=== PATIENT | female | born 1980 | race Two or more races ===

== ENCOUNTER 2018-04-02 00:13 | Inpatient (IN) ==
[2018-04-02] MEDS ORDERED: FAMOTIDINE 20 MG/2 ML VIAL IV ONE ×2 (00:34→07:30)
[2018-04-02] MEDS ORDERED: ceFAZolin 2,000 MG in PREMIX 1 EACH IV ONE ×2 (00:34→07:30)
[2018-04-02] MEDS ORDERED: CITRIC ACID/SODIUM CITRATE 30 ML UDCUP PO ONE ×2 (00:34→07:30)
[2018-04-02] MEDS ORDERED: hydrOXYzine HCL 25 MG/1 ML VIAL IM PRN (00:38)
[2018-04-02] MEDS ORDERED: PROMETHAZINE 25 MG/1 ML VIAL IM ONE (00:38)
[2018-04-02] MEDS ORDERED: diphenhydrAMINE 50 MG/1 ML VIAL IV PRN ×2 (00:38)
[2018-04-02 01:27] LABS: Basophils # 0.1 10*3/uL (0.0-0.2); Basophils % 0.4 % (0.0-0.8); Eosinophils # 0.2 10*3/uL (0.0-0.87); Eosinophils % 1.2 % (0.00-10.9); Hematocrit 38.1 VOL% (35.7-47.0); Immature Granulocytes % 0.4 %; Immature Granulocytes Absolute 0.05 #; Lymphocytes # 2.8 10*3/uL (1.4-4.0); Lymphocytes % 21.9 % (21.3-54.2); Mean Corpuscular HGB Conc 34.1 GM/DL (32-36); Mean Corpuscular Hemoglobin 30 PG (27-34); Mean Corpuscular Volume 87.4 FL (87-102); Mean Platelet Volume 11.4 FL (9.6-12.0); Monocytes # 1.1 10*3/uL (0.11-0.8); Monocytes % 8.3 % (1.7-12.7); Neutrophils # 8.7 10*3/uL (1.4-7.4); Neutrophils % 67.8 % (38.7-73.9); Platelet Count 248 T/CUMM (130-400); Red Blood Count 4.36 MC/CUMM (3.8-5.5); Red Cell Distribution Width 13.1 % (9.3-17.3); White Blood Count 12.8 T/CUMM (4-12)
[2018-04-02] MEDS: LACTATED RINGERS 1,000 ML IV SCH ×4 (01:32→23:23)
[2018-04-02] MEDS ORDERED: ONDANSETRON 4 MG/2 ML VIAL IV PRN ×2 (01:38→09:54)
[2018-04-02] MEDS ORDERED: OXYTOCIN/LR 30 UNIT/1,000 ML BAG IV PRN (01:40)
[2018-04-02] MEDS ORDERED: ONDANSETRON 4 MG/2 ML VIAL ONE (01:44)
[2018-04-02] MEDS ORDERED: MEPERIDINE 50 MG/1 ML VIAL ONE (01:44)
[2018-04-02] MEDS: MEPERIDINE 50 MG/1 ML VIAL IV PRN ×2 (01:45→06:11)
[2018-04-02] MEDS ORDERED: OXYTOCIN 10 UNIT/ML VIAL IM ONE (07:45)
[2018-04-02] MEDS ORDERED: PHENYLEPHRINE 1 MG/10 ML SYRINGE IV ONE (07:51)
[2018-04-02] MEDS ORDERED: BUPIVACAINE SPINAL 0.75% 2 ML AMP SPINAL ONE (07:52)
[2018-04-02 08:18] LABS: Apearance,Urine Slightly Hazy (Clear); Bacteria,Urine Occasional /HPF (Few); Bilirubin,Urine Negative (Negative); Blood, Urine Negative (Negative); Glucose,Urine (UA) Negative (Negative); Ketones,Urine Negative (Negative); Mucus,Urine Occasional /LPF (Occasional); Nitrite,Urine Negative (Negative); Protein,Urine Negative; RBC,Urine <1 /HPF (0-4); Urine Color Yellow (Yellow); Urine Specific Gravity 1.016 (1.001-1.035); Urine Urobilinogen < 2.0 EU/DL (0.2-1.0); WBC,Urine <1 /HPF (0-6)
[2018-04-02 09:33] LABS: Cord Arterial Blood HCO3 26.8 MMOL/L
[2018-04-02] MEDS ORDERED: OXYTOCIN/LR 20 UNIT/1,000 ML BAG IV ONE ×3 (09:33→09:54)
[2018-04-02 09:36] LABS: Cord Venous Blood HCO3 23.1 MMOL/L; Cord Venous Blood PCO2 43.7 MMHG; Cord Venous Blood PO2 31.7
[2018-04-02] MEDS ORDERED: ePHEDrine 50 MG/ML AMP IV ONE ×2 (09:46→10:45)
[2018-04-02] MEDS ORDERED: SIMETHICONE CHEW 80 MG TABLET PO PRN (09:54)
[2018-04-02] MEDS ORDERED: ACETAMINOPHEN 325 MG TABLET PO PRN (09:54)
[2018-04-02] MEDS ORDERED: MAGNESIUM HYDROXIDE SUSP 30 ML UDCUP PO PRN (09:54)
[2018-04-02] MEDS ORDERED: RHO(D) IMMUNE GLOBULIN 300 MCG SYRINGE IM ONE (09:54)
[2018-04-02] MEDS ORDERED: ceFAZolin 1,000 MG in SYRINGE 1 EACH IV SCH (10:00)
[2018-04-02] MEDS ORDERED: LACTATED RINGERS 1,000 ML IV SCH (10:00)
[2018-04-02] MEDS ORDERED: MORPHINE 10 MG/10 ML VIAL ONE (10:43)
[2018-04-02] MEDS ORDERED: MIDAZOLAM 2 MG/2 ML VIAL ONE (10:43)
[2018-04-02] MEDS ORDERED: HYDROmorphone 2 MG/1 ML VIAL IV PRN (13:51)
[2018-04-02 16:45] LABS: Basophils % 0.2 % (0.0-0.8); Eosinophils # 0.1 10*3/uL (0.0-0.87); Eosinophils % 0.4 % (0.00-10.9); Hematocrit 36.1 VOL% (35.7-47.0); Hemoglobin 12.6 GM/DL (12.0-16.0); Immature Granulocytes % 0.5 %; Lymphocytes # 2.2 10*3/uL (1.4-4.0); Mean Corpuscular HGB Conc 34.9 GM/DL (32-36); Mean Corpuscular Hemoglobin 31 PG (27-34); Mean Corpuscular Volume 87.4 FL (87-102); Monocytes % 5.1 % (1.7-12.7); Neutrophils # 15.2 10*3/uL (1.4-7.4); Neutrophils % 81.8 % (38.7-73.9); Platelet Count 210 T/CUMM (130-400); Red Blood Count 4.13 MC/CUMM (3.8-5.5); Red Cell Distribution Width 13.2 % (9.3-17.3); White Blood Count 18.5 T/CUMM (4-12)
[2018-04-02] MEDS: ceFAZolin 1,000 MG in SYRINGE 1 EACH IV SCH (16:55)
[2018-04-03] MEDS: ceFAZolin 1,000 MG in SYRINGE 1 EACH IV SCH (01:17)
[2018-04-03 06:01] LABS: Basophils % 0.2 % (0.0-0.8); Eosinophils # 0.1 10*3/uL (0.0-0.87); Eosinophils % 0.5 % (0.00-10.9); Hematocrit 32.9 VOL% (35.7-47.0); Hemoglobin 11.2 GM/DL (12.0-16.0); Immature Granulocytes % 0.6 %; Immature Granulocytes Absolute 0.08 #; Lymphocytes # 1.6 10*3/uL (1.4-4.0); Lymphocytes % 11.7 % (21.3-54.2); Mean Corpuscular Hemoglobin 30 PG (27-34); Mean Corpuscular Volume 88.9 FL (87-102); Mean Platelet Volume 10.7 FL (9.6-12.0); Monocytes # 0.8 10*3/uL (0.11-0.8); Monocytes % 6.2 % (1.7-12.7); Neutrophils % 80.8 % (38.7-73.9); Platelet Count 183 T/CUMM (130-400); Red Cell Distribution Width 13.2 % (9.3-17.3); White Blood Count 13.6 T/CUMM (4-12)
[2018-04-03] MEDS: METOCLOPRAMIDE 10 MG/2 ML VIAL IV SCH ×2 (07:50→16:24)
[2018-04-03] MEDS ORDERED: INFLUENZA VIRUS VACCINE 0.5 ML SYRINGE IM ONE (09:00)
[2018-04-03] MEDS ORDERED: SIMETHICONE CHEW 80 MG TABLET PO SCH (09:00)
[2018-04-03] MEDS ORDERED: BISACODYL 10 MG SUPP RECTAL ONE (09:00)
[2018-04-03] MEDS: DOCUSATE SODIUM 100 MG CAPSULE PO SCH ×2 (09:54→20:48)
[2018-04-03] MEDS: MULTIVITAMIN (PRENATAL) TABLET PO SCH (09:54)
[2018-04-03] MEDS: IBUPROFEN 800 MG TABLET PO PRN ×2 (10:40→20:48)
[2018-04-03] MEDS: MAGNESIUM HYDROXIDE SUSP 30 ML UDCUP PO SCH ×2 (13:10→22:32)
[2018-04-04] MEDS ORDERED: METOCLOPRAMIDE 10 MG/10 ML UDCUP PO SCH
[2018-04-04] MEDS ORDERED: METOCLOPRAMIDE 10 MG TABLET PO SCH
[2018-04-04] MEDS: METOCLOPRAMIDE 10 MG TABLET PO SCH ×2 (00:10→08:46)
[2018-04-04] MEDS: IBUPROFEN 800 MG TABLET PO PRN ×3 (02:31→16:08)
[2018-04-04] MEDS: DOCUSATE SODIUM 100 MG CAPSULE PO SCH (08:45)
[2018-04-04] MEDS: MULTIVITAMIN (PRENATAL) TABLET PO SCH (08:50)
[2018-04-04 10:15] VITALS: BP 101/61
[2018-04-04] MEDS ORDERED: INFLUENZA VIRUS VACCINE 0.5 ML SYRINGE IM ONE (15:12)
[2018-04-04] MEDS ORDERED: DIPH/TET/ACEL PERT BOOSTER VACCINE 0.5 ML VIAL IM ONE (15:12)
== END 2018-04-04 16:00 | disposition home or self-care (01) | DRG 785 ==
LOC: N.LDOUT 00:13 → N.LD 00:17 → N.OB 14:17
PROVIDERS: ADMIT Obstetrics & Gynecology; ATTEND Obstetrics & Gynecology